=== PATIENT | male | born 1940 | race Caucasian/White ===

== ENCOUNTER → 2024-10-02 | Outpatient (CLI) | payer MEDICARE ==
[~2024-10-02] VITALS: Ht 193 cm; Wt 136.5 kg
[~2024-10-02] MED LIST: FLUT1BLS IH; FLUTICASONE/VILANTEROL 200-25 MCG/INH INHALER [14] IH SCH; IPRA4AER IH; PRIM50TA3 PO
[2024-10-02 09:29] VITALS: BP 127/83; PULSE 87; RESP 19; TEMP 97.6; O2SAT 92
== END | disposition home or self-care (01) ==
LOC: SRCNTR 09:18
PROVIDERS: ATTEND Internal Medicine
DX: E66.9 Obesity, unspecified (principal); J45.909 Unspecified asthma, uncomplicated
CPT/HCPCS: G0463